=== PATIENT | male | born 1975 | race Caucasian/White ===

== ENCOUNTER 2018-01-25 22:14 | Emergency (ER) | payer OTHER ==
[~2018-01-25] VITALS: Ht 172.7 cm; Wt 81.6 kg
--- NOTE | 2018-01-25 22:14 | NUR ---
[id number]/LAPB FOR OTB. PT C/O ABD PAIN X 1 HOUR -N/V/D. IN CUSTODY. VSS TESFAYE CUTE DISTRESS NOTED AT THIS TIME. PT IS ALERT AND ORIENTED X4 ABLE TO MAKE NEEDS KNOWN. WILL CONTINUE TO MONITOR FOR ANY CHANGES DURING THE SHIFT.
--- NOTE | 2018-01-25 22:15 | NUR ---
ER MD TORRES AT BEDSIDE
[2018-01-25 23:21] VITALS: BP 140/92
[2018-01-25] MEDS ORDERED: ACETAMINOPHEN ES 500 MG TABLET PO ONE (23:30)
[2018-01-25] MEDS ORDERED: FAMOTIDINE (20 MG) 20 MG TABLET PO ONE (23:30)
== END 2018-01-25 23:22 ==
LOC: ER 22:16
DX: R10.10 Upper abdominal pain, unspecified (principal); I10 Essential (primary) hypertension; I25.2 Old myocardial infarction; Z85.038 Personal history of other malignant neoplasm of large intestine; Z98.890 Other specified postprocedural states
CPT/HCPCS: 99283; A4606; Z7610